=== PATIENT | female | born 1955 | race Caucasian/White ===

== ENCOUNTER 2023-12-01 11:09 | Outpatient (AMB) | payer MEDICARE, SELFPAY ==
--- NOTE | 2023-12-01 11:58 | HO.NEPHOV_ITS ---
HPI HPI Comments History of Present Illness Details I had the privilege of seeing Paola accompanied by her in consultation for her labile blood pressure. 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 She has been having hypertension for well over a decade. She was initially initiated on low-dose of MICKY-inhibitor which had been steadily going up, current dose being 20 mg daily. She monitors her blood pressure in the morning and evening. She has strict with her diet. 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 She has no history of hypokalemia, hypercalcemia. She does not sleep well and wakes up multiple times in the night. Her renal functions have been normal. She is not known to have any left ventricular hypertrophy, retinopathy, proteinuria, congestive heart failure. She has no history of peripheral arterial disease, renal artery stenosis, carotid disease, congestive heart failure. She had thyroid surgery and has been on Synthroid. She has an anxious personality and takes lorazepam as needed. Her renal functions have been normal. She has no history of or preeclampsia during her . She is not a diabetic. Otherwise she feels well. COUNTS INCLUDE 234 BEDS AT THE [facility] Medical History (Updated 12/01/23 @ 13:45 by Dalton Mansfield MD) History of ductal carcinoma in situ (DCIS) of breast Situational anxiety Hypothyroid Hypertension Dyspepsia Surgical History (Updated 12/01/23 @ 12:05 by Yvette Lee MA) History of breast surgery S/P patent foramen ovale closure History of esophagogastroduodenoscopy H/O colonoscopy Family History (Updated 12/01/23 @ 12:04 by Yvette Lee MA) Mother Hypertension Sister Hypertension Social History (Updated 12/01/23 @ 08:59 by Yvette Lee MA) Alcohol intake: never Patient Tobacco Use Status: Never used Tobacco Vital Signs 12/01/23 12:00 Height 5 ft 5 in Weight 135 lb 4 oz BMI 22.5 BP 130/84 Blood Pressure Location Lt brachial Position Sitting Pulse 69 Pulse Source Pulse Oximeter Pulse Oximetry (%) 98 Oxygen Delivery Method Room Air Physical Exam Vital Signs: Last Vital Signs Pulse 69 12/01/23 12:00 BP 130/84 12/01/23 12:00 Pulse Ox 98 12/01/23 12:00 Oxygen Delivery Method Room Air 12/01/23 12:00 BMI result Body Mass Index 22.5 Const General: comfortable and no acute distress Orientation/consciousness: patient oriented x3 HEENT Head: Yes normocephalic Mouth: Normal oral and palatal mucosa present Eyes EOM: EOMs intact bilaterally Neck Neck: Yes supple Resp Auscultation: clear to auscultation bilaterally Cardio Jugular venous distension: no JVD Rate: regular rate GI Palpation (GI): Soft to palpation Auscultation: normal bowel sounds General: Yes no CVA tenderness Back/Spine/Pelvis Back: no CVA tenderness Skin General skin exam: no rashes or lesions noted Neuro General: patient oriented x3 and moves all extremities Extrem General: Yes no pedal edema Assessment & Plan Assessment & Plan (1) Hypertension: Code(s): I10 - Essential (primary) hypertension Qualifiers: Hypertension type: primary hypertension Qualified Code(s): I10 - Essential (primary) hypertension Plan Paola has longstanding hypertension. I started her on 10 mg lisinopril in the evening and asked her to continue 20 mg the morning. She is aware of the side effects of it and was given a lab order sheet to check her serum potassium and renal functions after going up on the dose. She will benefit from a sleep stud y. I will order renin, aldosterone after next visit. She may need a Doppler of her renal arteries especially given history CVA even though it was caused by patent foramina ovale. Given she is an anxious personality I suggested she could start a low-dose beta ezio to take in the evening which she is reluctant as she does not want to add more new medications. She avoids nonsteroidal anti-inflammatories and maintain good hydration. I asked her to call me with any issues following increase in dosage of lisinopril dosage. Answered her and her 's questions. Follow-up given. Orders: Orders Creatinine Today I10 - Essential (primary) hypertension Blood Urea Nitrogen Today I10 - Essential (primary) hypertension Electrolytes Today I10 - Essential (primary) hypertension Medications: New lisinopril 20 mg PO DAILY 90 tabs 3RF Coding Level of Care Code New Pt Level 4 (02634) Diagnoses Primary hypertension I10 Hypertension type: primary hypertension Results Reviewed Nephrology Results: No Data to Display
[2023-12-01 12:00] VITALS: BP 130/84; PULSE 69; O2SAT 98; BMI 22.5
== END 2023-12-01 12:41 | disposition home or self-care (01) ==
PROVIDERS: PCP Family Medicine; Referring Provider Family Medicine; Visit Provider Internal Medicine Nephrology
DX: I10 Essential (primary) hypertension (principal)
CPT/HCPCS: 99204

== ENCOUNTER → 2023-12-01 11:09 | Outpatient (BNVA) | payer MEDICARE, SELFPAY | PROVIDERS: PCP Family Medicine; Referring Provider Family Medicine; Visit Provider Internal Medicine Nephrology | DX: I10 Essential (primary) hypertension (principal); Z79.899 Other long term (current) drug therapy | CPT/HCPCS: 99202 ==

== ENCOUNTER 2024-01-05 10:37 | Outpatient (AMB) | payer MEDICARE, SELFPAY ==
--- NOTE | 2024-01-05 10:48 | HO.NEPHOV ---
HPI HPI Comments History of Present Illness Details I had the privilege of seeing Paola in follow up for her labile blood pressure. 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 She has been having hypertension for well over a decade. She monitors her blood pressure in the morning and evening. She has strict with her diet. 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 She has no history of hypokalemia, hypercalcemia. She does not sleep well and wakes up multiple times in the night. Her renal functions have been normal. She is not known to have any left ventricular hypertrophy, retinopathy, proteinuria, congestive heart failure. She has no history of peripheral arterial disease, renal artery stenosis, carotid disease, congestive heart failure. She had thyroid surgery and has been on Synthroid. She has an anxious personality and takes lorazepam as needed. Her renal functions have been normal. She has no history of or preeclampsia during her . She is not a diabetic. Otherwise she feels well. [facility] Medical History (Updated 12/01/23 @ 13:45 by Dalton Mansfield MD) History of ductal carcinoma in situ (DCIS) of breast Situational anxiety Hypothyroid Hypertension Dyspepsia Surgical History History of breast surgery S/P patent foramen ovale closure History of esophagogastroduodenoscopy H/O colonoscopy Family History Mother Hypertension Sister Hypertension Social History Alcohol intake: never Patient Tobacco Use Status: Never used Tobacco Vital Signs 01/05/24 10:49 Height 5 ft 5 in Weight 137 lb 8 oz BMI 22.9 BP 126/74 Blood Pressure Location Lt brachial Position Sitting Pulse 67 Pulse Source Pulse Oximeter Pulse Oximetry (%) 99 Oxygen Delivery Method Room Air Physical Exam Vital Signs: Last Vital Signs Pulse 67 01/05/24 10:49 BP 126/74 01/05/24 10:49 Pulse Ox 99 01/05/24 10:49 Oxygen Delivery Method Room Air 01/05/24 10:49 BMI result Body Mass Index 22.9 Const General: comfortable and no acute distress Orientation/consciousness: patient oriented x3 HEENT Head: Yes normocephalic Mouth: Normal oral and palatal mucosa present Eyes EOM: EOMs intact bilaterally Neck Neck: Yes supple Resp Auscultation: clear to auscultation bilaterally Cardio Jugular venous distension: no JVD Rate: regular rate GI Palpation (GI): Soft to palpation Auscultation: normal bowel sounds General: Yes no CVA tenderness Back/Spine/Pelvis Back: no CVA tenderness Skin General skin exam: no rashes or lesions noted Neuro General: patient oriented x3 and moves all extremities Extrem General: Yes no pedal edema Assessment & Plan Assessment & Plan (1) Hypertension: Code(s): I10 - Essential (primary) hypertension Qualifiers: Hypertension type: primary hypertension Qualified Code(s): I10 - Essential (primary) hypertension Plan Paola has longstanding hypertension. She should continue 10 mg lisinopril in the evening and asked her to continue 20 mg the morning. Her BP is at goal now. She may need a Doppler of her renal arteries if her BP is labile especially given history CVA even though it was caused by patent foramina ovale. Given she is an anxious personality I suggested she could start a low-dose beta ezio to take in the evening which she is reluctant as she does not want to add more new medications. She avoids nonsteroidal anti-inflammatories and maintain good hydration. I asked her to call me with any issues following increase in dosage of lisinopril dosage. Answered her and her 's questions. Follow-up given Orders: Orders Blood Urea Nitrogen Today I10 - Essential (primary) hypertension Creatinine Today I10 - Essential (primary) hypertension Electrolytes Today I10 - Essential (primary) hypertension Coding Level of Care Code Est Pt Level 3 (09288) Diagnoses Primary hypertension I10 Hypertension type: primary hypertension Results Reviewed Nephrology Results: No Data to Display
[2024-01-05 10:49] VITALS: BP 126/74; PULSE 67; O2SAT 99; BMI 22.9
== END 2024-01-05 11:23 | disposition home or self-care (01) ==
PROVIDERS: PCP Family Medicine; Visit Provider Internal Medicine Nephrology
DX: I10 Essential (primary) hypertension (principal)
CPT/HCPCS: 99213

== ENCOUNTER → 2024-01-05 10:37 | Outpatient (BNVA) | payer MEDICARE, SELFPAY | PROVIDERS: PCP Family Medicine; Visit Provider Internal Medicine Nephrology | DX: I10 Essential (primary) hypertension (principal) | CPT/HCPCS: 99212 ==

== ENCOUNTER 2024-07-12 11:40 | Outpatient (AMB) | payer MEDICARE, SELFPAY ==
--- NOTE | 2024-07-12 11:51 | HO.NEPHOV ---
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 She has been having systolic BP of 120's at home. 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 She has been having hypertension for well over a decade. She monitors her blood pressure in the morning and evening. She has strict with her diet. 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 She has no history of hypokalemia, hypercalcemia. She does not sleep well and wakes up multiple times in the night. Her renal functions have been normal. She is not known to have any left ventricular hypertrophy, retinopathy, proteinuria, congestive heart failure. She has no history of peripheral arterial disease, renal artery stenosis, carotid disease, congestive heart failure. She had thyroid surgery and has been on Synthroid. She has an anxious personality and takes lorazepam as needed. Her renal functions have been normal. She is not a diabetic. Otherwise she feels well. [facility] Medical History (Updated 12/01/23 @ 13:45 by Dalton Mansfield MD) History of ductal carcinoma in situ (DCIS) of breast Situational anxiety Hypothyroid Hypertension Dyspepsia Surgical History History of breast surgery S/P patent foramen ovale closure History of esophagogastroduodenoscopy H/O colonoscopy Family History Mother Hypertension Sister Hypertension Social History Alcohol intake: never Patient Tobacco Use Status: Never used Tobacco Review of Systems Const All systems reviewed & are unremarkable except as noted in HPI and below Physical Exam Vital Signs: Last Vital Signs Pulse 56 07/12/24 11:54 BP 150/82 H 07/12/24 11:54 Pulse Ox 98 07/12/24 11:54 Oxygen Delivery Method Room Air 07/12/24 11:54 BMI result Body Mass Index 22.5 Const General: comfortable and no acute distress Orientation/consciousness: patient oriented x3 HEENT Head: Yes normocephalic Mouth: Normal oral and palatal mucosa present Eyes EOM: EOMs intact bilaterally Neck Neck: Yes supple Resp Auscultation: clear to auscultation bilaterally Cardio Jugular venous distension: no JVD Rate: regular rate GI Palpation (GI): Soft to palpation Auscultation: normal bowel sounds General: Yes no CVA tenderness Back/Spine/Pelvis Back: no CVA tenderness Skin General skin exam: no rashes or lesions noted Neuro General: patient oriented x3 and moves all extremities Extrem General: Yes no pedal edema Results Reviewed Nephrology Results: No Data to Display Assessment & Plan Assessment & Plan (1) Hypertension: Code(s): I10 - Essential (primary) hypertension Category: Medical Qualifiers: Hypertension type: primary hypertension Qualified Code(s): I10 - Essential (primary) hypertension Plan Paola has longstanding hypertension. She should continue 10 mg lisinopril in the evening and asked her to continue 20 mg the morning. Her BP is at goal now. She may need a Doppler of her renal arteries if her BP is labile especially given history CVA even though it was caused by patent foramina ovale. Given she is an anxious personality I suggested she could start a low-dose beta ezio to take in the evening which she is reluctant as she does not want to add more new medications. She avoids nonsteroidal anti-inflammatories and maintain good hydration. She will benefit from sleep study. Answered her and her 's questions. Follow-up given Orders: Orders Electrolytes Today I10 - Essential (primary) hypertension Creatinine Today I10 - Essential (primary) hypertension Blood Urea Nitrogen Today I10 - Essential (primary) hypertension Medications: Changed From lisinopril 30 mg PO DAILY To lisinopril 30 mg (1.5 x 20 mg) PO DAILY 90 days 135 tabs 4RF Coding Level of Care Code Est Pt Level 4 (27480) Diagnoses Primary hypertension I10 Hypertension type: primary hypertension
[2024-07-12 11:54] VITALS: BP 128/80; PULSE 56; O2SAT 98; BMI 22.5
== END 2024-07-12 12:26 | disposition home or self-care (01) ==
PROVIDERS: PCP Family Medicine; Visit Provider Internal Medicine Nephrology
DX: I10 Essential (primary) hypertension (principal)
CPT/HCPCS: 99214

== ENCOUNTER → 2024-07-12 11:40 | Outpatient (BNVA) | payer MEDICARE, SELFPAY | PROVIDERS: PCP Family Medicine; Visit Provider Internal Medicine Nephrology | DX: I10 Essential (primary) hypertension (principal) | CPT/HCPCS: 99212 ==

== ENCOUNTER 2025-07-11 09:24 | Outpatient (AMB) | payer MEDICARE, SELFPAY ==
--- NOTE | 2025-07-11 09:25 | HO.NEPHOV_ITS ---
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 She has been having systolic BP of 120's at home. 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 She has been having hypertension for well over a decade. She monitors her blood pressure in the morning and evening. She has strict with her diet. 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 She has no history of hypokalemia, hypercalcemia. She does not sleep well and wakes up multiple times in the night. Her renal functions have been normal. She is not known to have any left ventricular hypertrophy, retinopathy, proteinuria, congestive heart failure. She has no history of peripheral arterial disease, renal artery stenosis, carotid disease, congestive heart failure. She had thyroid surgery and has been on Synthroid. She has an anxious personality and takes lorazepam as needed. Her renal functions have been normal. She is not a diabetic. Otherwise she feels well. [facility] Medical History (Updated 12/01/23 @ 13:45 by Dalton Mansfield MD) History of ductal carcinoma in situ (DCIS) of breast Situational anxiety Hypothyroid Hypertension Dyspepsia Surgical History History of breast surgery S/P patent foramen ovale closure History of esophagogastroduodenoscopy H/O colonoscopy Family History Mother Hypertension Sister Hypertension Social History Alcohol intake: never Patient Tobacco Use Status: Never used Tobacco Review of Systems Const All systems reviewed & are unremarkable except as noted in HPI and below Physical Exam Vital Signs: Last Vital Signs Pulse 56 07/11/25 09:28 BP 146/80 H 07/11/25 09:28 Pulse Ox 100 07/11/25 09:28 Oxygen Delivery Method Room Air 07/11/25 09:28 BMI result Body Mass Index 22.7 Const General: comfortable and no acute distress Orientation/consciousness: patient oriented x3 HEENT Head: Yes normocephalic Mouth: Normal oral and palatal mucosa present Eyes EOM: EOMs intact bilaterally Neck Neck: Yes supple Resp Auscultation: clear to auscultation bilaterally Cardio Jugular venous distension: no JVD Rate: regular rate GI Palpation (GI): Soft to palpation Auscultation: normal bowel sounds General: Yes no CVA tenderness Back/Spine/Pelvis Back: no CVA tenderness Skin General skin exam: no rashes or lesions noted Neuro General: patient oriented x3 and moves all extremities Extrem General: Yes no pedal edema Assessment & Plan Assessment & Plan (1) Hypertension: Code(s): I10 - Essential (primary) hypertension Category: Medical Qualifiers: Hypertension type: primary hypertension Qualified Code(s): I10 - Essential (primary) hypertension Plan Paola has longstanding hypertension. She should continue 10 mg lisinopril in the evening and asked her to continue 20 mg the morning. Her BP is at goal now at home. She may need a Doppler of her renal arteries if her BP is labile especially given history CVA even though it was caused by patent foramina ovale. Given she is an anxious personality I suggested she could start a low-dose beta ezio to take in the evening which she is reluctant as she does not want to add more new medications. She avoids nonsteroidal anti-inflammatories and maintain good hydration. Answered her and her 's questions. Follow-up given Orders: Orders Protein Creatinine Ratio, Ur 1 Year I10 - Essential (primary) hypertension Blood Urea Nitrogen 1 Year I10 - Essential (primary) hypertension Creatinine 1 Year I10 - Essential (primary) hypertension Electrolytes 1 Year I10 - Essential (primary) hypertension Medications: Refilled lisinopril 30 mg (1.5 x 20 mg) PO DAILY 135 tabs 4RF 90 days Coding Level of Care Code Est Pt Level 4 (57553) Diagnoses Primary hypertension I10 Hypertension type: primary hypertension
[2025-07-11 09:28] VITALS: BP 146/80; PULSE 56; O2SAT 100; BMI 22.7
--- OUTSIDE RECORDS SUMMARY | 2025-07-11 10:21 | XMS_ITS | Clinical Summary ---
Author Organization [facility] Address [address] [place] [address] Care Team Providers Care Concrete Analyst Name Role Phone Dillan Lucero MD Primary Care Provider [phone] Allergies No known active allergies Medications Medication Sig Dispensed Refills Start Date End Date Status aspirin EC 81 MG tablet Take 1 tablet (81 mg total) by mouth daily. 0 Active lisinopril (PRINIVIL,ZESTRIL) tablet 30 mg Take 1 tablet (30 mg total) by mouth daily. Take 15mg 0 Active Multiple Vitamins-Minerals (MULTIVITAMIN PO) Take by mouth daily. 0 Active levothyroxine (SYNTHROID) tablet 112 mcg Take 1 tablet (112 mcg total) by mouth every morning on an empty stomach. 0 Active vitamin D3 (VITAMIN D3) 25 MCG (1000 UT) tablet Take 1 tablet (1,000 Units total) by mouth daily. 0 Active LORazepam (ATIVAN) 0.5 MG tablet Take 1 tablet (0.5 mg total) by mouth every 8 (eight) hours as needed. 0 Active Active Problems Problem Noted Date Diagnosed Date Ductal carcinoma in situ (DCIS) of left breast 1 Social History Tobacco Use Types Packs/Day Years Used Date Smoking Tobacco: Never Assessed Sex and Gender Information Value Date Recorded Sex Assigned at Not on file Gender Identity Not on file Sexual Orientation Not on file Job Start Date Occupation Industry Not on file Not on file Not on file Last Filed Vital Signs Vital Sign Reading Time Taken Comments Blood Pressure 135/65 06/13/2024 10:03 AM EDT Pulse 59 06/13/2024 10:03 AM EDT Temperature 37.2 C (98.9 F) 06/13/2024 10:03 AM EDT Respiratory Rate - - Oxygen Saturation 100% 06/13/2024 10:03 AM EDT Inhaled Oxygen Concentration - - Weight 60.8 kg (134 lb) 06/13/2024 10:03 AM EDT Height 167.6 cm (5' 6 ) 06/13/2024 10:03 AM EDT Body Mass Index 21.63 06/13/2024 10:03 AM EDT Plan of Treatment Health Maintenance Due Date Last Done Comments Hepatitis C Screening 1955 COVID-19 Vaccine (#1) 01/30/1960 Pneumococcal Vaccine (1 of 2 - PCV) 1961 Depression Screening 1967 Preventative Health Evaluation 1973 DTap / Tdap / Td (1 - Tdap) 1974 Shingrix-Zoster Vaccine (1 of 2) 1974 Colon Cancer Screening (Colonoscopy) 01/30/2000 Breast Cancer Screening (Mammogram) 2005 Fall Risk Assessment 01/30/2020 Osteoporosis Screening (DEXA Scan) 01/30/2020 Influenza Vaccine (#1) 2025 RSV Adult > 60+ Yrs or Pregn ant (1 - 1-dose 75+ series) 2030 Hepatitis B Vaccines Aged Out No long er eligible based on patient's age to complete this topic RSV Ped < 20 months Aged Out No longe r eligible based on patient's age to complete this topic Care Teams Concrete Analyst Relationship Specialty Start Date End Date Dillan Lucero MD [address] [place] [id number] PCP - General Family Medicine 09/07/18
--- OUTSIDE RECORDS SUMMARY | 2025-07-11 10:21 | XMS_ITS | Clinical Summary ---
Author Organization [facility] Address [address] [place] [address] Phone Care Team Providers Care Machine Filler Shredder Name Role Phone Emy Butler NP Primary Care Provider [phone] Allergies No known active allergies Medications aspirin 81 mg EC tablet Take 1 tablet (81 mg total) by mouth 1 (one) time each day. Active levothyroxine (SYNTHROID, LEVOTHROID) 112 mcg tablet Take 1 tablet (112 mcg total) by mouth every morning on an empty stomach. Active lisinopriL (PRINIVIL,ZESTR IL) 30 mg tablet Take 1 tablet (30 mg total) by mouth daily. Take 15mg Active LORazepam (ATIVAN) 0.5 mg tablet Take 1 tablet (0.5 mg total) by mouth every 8 (eight) hours as needed. Active MULTIVITAMIN ORAL Take by mouth daily. Active cholecalciferol (VITAMIN D-3) 25 mcg (1,000 unit) tablet Take 1 tablet (1,000 Units total) by mouth daily. Active rosuvastatin (CRESTOR) 5 mg tablet Take 1 tablet (5 mg total) by mouth. at bedtime 12/08/2024 Active Active Problems Problem Noted Date Diagnosed Date Ductal carcinoma in situ (DCIS) of left breast 1 Encounters Date Type Department Care Team Description 06/26/2025 9:45 AM EDT Office Visit [facility] Hematology Oncology [address] [place] [phone] Jos Alamo MD Ductal carcinoma in situ (DCIS) of left breast (Primary Dx) 05/17/2025 10:47 AM EDT - 05/17/2025 11:59 PM EDT Hospital Encounter [facility] at [address] [phone] Ductal carcinoma in situ (DCIS) of left breast; Encounter for screening mammogram for malignant neoplasm of breast Discharge Disposition: Home or Self Care from Last 3 Months Surgical History Surgery Date Site/Laterality Comments STEREOTACTIC CORE BIOPSY Bilateral BREAST LUMPECTOMY Right Medical History Medical History Date Comments Breast cancer (CMS/HCC V24, CMS/HCC V28) DX:Breast cancer (HCC);COMMENT:DCIS BRCA1 gene mutation negative Family History Medical History Relation Name Comments Breast cancer Mother Breast cancer Mother's Sister Relation Name Status Comments Mother Mother's Sister Alive Social History Tobacco Use Types Packs/Day Years Used Date Smoking Tobacco: Never Assessed Comments No Sex and Gender Information Value Date Recorded Sex Assigned at Not on file Legal Sex Female 12:18 PM EST Gender Identity Not on file Sexual Orientation Not on file Obstetrics History Para Term AB IAB SAB Ectopic Multiple Livin g Live Births 1 Last Filed Vital Signs Vital Sign Reading Time Taken Comments Blood Pressure 142/69 06/26/2025 9:50 AM EDT Pulse 50 06/26/2025 9:50 AM EDT Temperature 36.1 C (97 F) 06/26/2025 9:50 AM EDT Respiratory Rate - - Oxygen Saturation 100% 06/26/2025 9:50 AM EDT Inhaled Oxygen Concentration - - Weight 61.9 kg (136 lb 6.4 oz) 06/26/2025 9:50 A M EDT Height 167.6 cm (5' 6 ) 05/17/2025 10:57 AM EDT Body Mass Index 22.02 05/17/2025 10:57 AM EDT Plan of Treatment Upcoming Encounters Date Type Department Care Team (Late st Contact Info) Description 12/27/2025 9:45 AM EST Office Visit [facility] Hematology Oncology [address] [place] [phone] Jos Alamo MD [address] [place] [phone] Health Maintenance Due Date Last Done Comments Cholesterol Screening (Lipid Panel) 10/18/2022 Colorectal Cancer Screening: Colonoscopy 10/18/2022 Falls Risk Assessment 10/18/2022 Hepatitis C Screening 10/18/2022 Osteoporosis Screening (Bone Density Screening) 10/18/2022 Social Influencers of Health Screening 10/18/2022 Medicare Annual Wellness Visit 08/26/2024 08/26/2023 Depression Screening 11/09/2024 COVID-19 Vaccine (7 - Pfizer risk season) 2025 08/25/2024, 03/25/2023, 06/02/2022, Additional history exists Influenza Vaccine (#1) 2025 4, 08/13/2023, 11/15/2019, Additional history exists Breast Cancer Screening 05/17/2027 05/17/20, 05/16/2024, 05/08/2023, Additional history exists RSV Immunization Adult Patients (1 - 1-dose 75+ series) 2030 DTaP,Tdap,and Td Vaccines (2 - Td or Tdap) 02/20/2032 02/19/2022 Zoster Vaccines Completed 11/11/2019, 09/06/2019 Pneumococcal Vaccine: 50+ Years Completed 10/07/2022 HIB Vaccines Aged Out No longer eligi ble based on patient's age to complete this topic HPV Vaccines Aged Out No longer eligi ble based on patient's age to complete this topic Hepatitis A Vaccines Aged Out No long er eligible based on patient's age to complete this topic Hepatitis B Vaccines Aged Out No long er eligible based on patient's age to complete this topic IPV Vaccines Aged Out No longer eligi ble based on patient's age to complete this topic MMR Vaccines Aged Out No longer eligi ble based on patient's age to complete this topic Meningococcal ACWY Vaccine Aged Out N o longer eligible based on patient's age to complete this topic Meningococcal B Vaccine Aged Out No l onger eligible based on patient's age to complete this topic RSV Immunization Patients Under 20 months Aged Out No longer eligible based on patient's age to complete this topic Varicella Vaccines Aged Out No longer eligible based on patient's age to complete this topic Procedures Procedure Name Priority Date/Time Associated Diagnosis Comments MG MAMMO DIGITAL SCREENING W JED BILAT Routine 05/17/2025 11:23 AM EDT Ductal carcinoma in situ (DCIS) of left breast Encounter for screening mammogram for malignant neoplasm of breast from Last 3 Months Results * MG Mammo Digital Screening w Jed bilat (05/17/2025 11:23 AM EDT) Anatomical Region Laterality Modality Breast Bilateral Mammography 05/17/2025 5:33 PM EDT Impressions 05/17/2025 5:40 PM EDT No mammographic evidence of new or recurrent malignancy. No suspicious interval change. A negative mammogram in the presence of a clinically suspicious palpable abnormality does not preclude the possibility of malignancy or alter the indications for biopsy. ASSESSMENT: BI-RADS 2: BENIGN RECOMMENDATION(S): 1: Routine screening mammogram BILATERAL in 1 year. [facility] location[facility] at [address], [address] -------- FINAL REPORT -------- Dictated By: Gordy Glover Dictated Date: 05/17/2025 17:33 ET Assigned Physician: Gordy Glover Reviewed and Electronically Signed By: Gordy Glover Signed Date: 05/17/2025 17:40 ET Workstation ID: [id number] Transcribed By: Self Edit Transcribed Date: 05/17/2025 17:33 ET Narrative 05/17/2025 5:40 PM EDT EXAM: SCREENING MAMMOGRAPHY, BILATERAL HISTORY: SCREENING. Personal history of right breast cancer. Prior right lumpectomy. Excision biopsy left breast for benign process 1998. Family history of breast cancer, mother diagnosed age 88, maternal aunt COMPARISON: 01/06/24, 05/08/23, 05/05/22, 05/02/21 TECHNIQUE: Synthesized CC and MLO projections of each breast. Tomosynthesis of each breast in the CC and MLO projections. ADDITIONAL IMAGING: None Computer-aided detection was employed with the iCAD [employer] AI 3-D. TISSUE DENSITY: There are scattered areas of fibroglandular density. (BI-RADS category B) FINDINGS: RIGHT BREAST: There is stable architectural distortion at the site of right lumpectomy. No additional suspicious right breast findings LEFT BREAST: Architectural distortion is unchanged consistent with prior excision. No additional suspicious left breast findings Procedure Note Gordy Glover MD - 05/17/2025 EXAM: SCREENING MAMMOGRAPHY, BILATERAL HISTORY: SCREENING. Personal history of right breast cancer. Priorright lumpectomy. Excision biopsy left breast for benign process 1998. Family history of breast cancer, mother diagnosed age 88, maternal aunt COMPARISON: 01/06/24, 05/08/23, 05/05/22, 05/02/21 TECHNIQUE: Synthesized CC and MLO projections of each breast.Tomosynthesis of each breast in the CC and MLO projections. ADDITIONAL IMAGING: None Computer-aided detection was employed with the iCAD [employer]Found AI 3-D. TISSUE DENSITY: There are scattered areas of fibroglandular density.(BI-RADS category B) FINDINGS: RIGHT BREAST: There is stable architectural distortion at the site of right lumpectomy.No additional suspicious right breast findings LEFT BREAST: Architectural distortion is unchanged consistent with prior excision. Noadditional suspicious left breast findings IMPRESSION: No mammographic evidence of new or recurrent malignancy. No suspicious interval change. A negative mammogram in the presence of a clinically suspicious palpableabnormality does not preclude the possibility of malignancy or alter theindications for biopsy. ASSESSMENT: BI-RADS 2: BENIGN RECOMMENDATION(S): 1: Routine screening mammogram BILATERAL in 1 year. [facility] location[facility] at [address], [id number] -------- FINAL REPORT -------- Dictated By: Gordy Glover Dictated Date: 05/17/2025 17:33 ET Assigned Physician: Gordy Glover Reviewed and Electronically Signed By: Gordy Glover Signed Date: 05/17/2025 17:40 ET Workstation ID: [id number] Transcribed By: Self Edit Transcribed Date: 05/17/2025 17:33 ET us Jos Alamo MD IMG BI PROCEDURES Final Res ult from Last 3 Months Insurance MEDICARE [facility] Care Teams Machine Filler Shredder Relationship Specialty Start Date End Date Emy Butler NP [address] [place] [address] [place] [phone] PCP - General 05/17/25
== END 2025-07-11 09:56 | disposition home or self-care (01) ==
LOC: HO.HKAS 09:24
PROVIDERS: PCP Nurse Practitioner; Visit Provider Internal Medicine Nephrology
DX: I10 Essential (primary) hypertension (principal)
CPT/HCPCS: 99214

== ENCOUNTER → 2025-07-11 09:24 | Outpatient (BNVA) | payer MEDICARE, SELFPAY | PROVIDERS: PCP Nurse Practitioner; Visit Provider Internal Medicine Nephrology | DX: I10 Essential (primary) hypertension (principal) | CPT/HCPCS: 99212 ==